=== PATIENT | female | born 1990 | race Caucasian/White ===

== ENCOUNTER 2016-09-14 21:38 | Inpatient (IN) | payer BC ==
[~2016-09-14] VITALS: Ht 160 cm; Wt 48.0 kg
[~2016-09-14 21:38] MED LIST: IBUP-1542 PO; ONDA4TAB35 PO
[2016-09-14] MEDS ORDERED: SOD CHLORIDE 0.9% 1,000 ML IV STA (22:26)
--- NOTE | 2016-09-14 22:36 | ERD ---
ER Documentation Chief Complaint Date/Time DATE: 09/14/16 TIME: 22:34 Chief Complaint 5pm syncopal episode, tachycardic, lost 15lbs in last 2 mos HPI Patient is a 26-year-old female with no medical problems who presents after she passed out. She had a syncopal event at 5 PM. The patient thinks that she might be having thyroid issues as she has had a 15 pound weight loss in the past 2 months which was not done intentionally. She said that she had hot flashes and sweats occasionally as well. She said that today when she passed out she had been standing for about 5 minutes. Her primary doctor is Dr. Jimenez she has an appointment scheduled with him on Friday. Upon review of old medical records this is the patient's third visit to the ER since 2014. ROS All systems reviewed and are negative except as per history of present illness. Medications Home Meds Discontinued Scripts Ibuprofen* (Ibuprofen*) 600 Mg Tablet, 600 MG PO Q6, #30 TAB Prov:GIANNA MCKINNEY PA-C 07/23/15 Ondansetron Hcl* (Zofran* ODT) 4 mg -ODT Tab.disper, 4 MG PO Q4H Y for NAUSEA AND OR VOMITING, #10 TAB Prov:GIANNA MCKINNEY PA-C 07/23/15 Allergies Allergies: Coded Allergies: No Known Allergy (Unverified , 09/14/16) PMhx/Soc Hx Alcohol Use: No Hx Substance Use: No Hx Tobacco Use: No FmHx Family History: No diabetes Physical Exam Vitals Vital Signs Date Time Temp Pulse Resp B/P Pulse Ox O2 Delivery O2 Flow Rate FiO2 09/14/16 22:07 97.9 119 18 161/102 98 Physical Exam Const: No acute distress, patient is thin Head: Atraumatic Eyes: Normal Conjunctiva ENT: Normal External Ears, Nose and Mouth. Neck: Full range of motion..~ No meningismus. Resp: Clear to auscultation bilaterally Cardio: Tachycardic rate without murmur Abd: Soft, non tender, non distended. Normal bowel sounds Skin: No petechiae or rashes Back: No midline or flank tenderness Ext: No cyanosis, or edema Neur: Awake and alert Psych: Normal Mood and Affect Results 24 hrs Current Medications Medications (Trade) Dose Ordered Sig/Osiris Route PRN Reason Start Time Stop Time Status Last Admin Dose Admin Sodium Chloride (NS) 1,000 ml @ 1,000 mls/hr Q1H STAT IV 09/14/16 22:26 09/14/16 23:25 Procedures/MDM EKG pending at this time. Laboratory studies pending at this time. Patient is a 26-year-old female with no medical problems who presents after a syncopal event. She came in with tachycardia and hypertension. The patient will have a workup including urine test, Accu-Chek, EKG, and laboratory studies. She will be given 1 L of normal saline for fluid resuscitation. If her EKG and laboratory studies are normal and I believe outpatient management would be appropriate she does have close follow-up with her primary doctor on Friday. There is no history of Brugada or Clay- Parkinson-White. She should stay well-hydrated and eat frequent meals. She could return for any worsening symptoms. I doubt ventricular fibrillation or ventricular tachycardia. Departure Diagnosis: Primary Impression: Syncope Syncope type: unspecified Qualified Code: R55 - Syncope, unspecified syncope type Condition: Fair Patient Instructions: Syncope, Unk Cause Referrals: XIOMARA JIMENEZ MD Additional Instructions: Keep the appointment with Dr. Jimenez already scheduled for Friday. Return if worse. JODIE MCCULLOUGH MD Sep 14, 2016 22:35
[2016-09-14] MEDS ORDERED: ONDANSETRON 4 MG INJ IV PRN (23:00)
[2016-09-14] MEDS ORDERED: ACETAMINOPHEN 325 MG TAB PO PRN (23:00)
[2016-09-14 23:18] LABS: BASOPHILS % 0.5 % (0.0-2.0); EOSINOPHILS # 0.1 10^3/ul (0.0-0.5); EOSINOPHILS % 1.4 % (0.0-7.0); HEMATOCRIT 42.4 % (37.0-47.0); HEMOGLOBIN 14.3 g/dl (12.0-16.0); LYMPHOCYTES # 2.9 10^3/ul (0.8-2.9); LYMPHOCYTES % 32.6 % (15.0-51.0); MEAN CORPUSCULAR HEMOGLOBIN 28.4 pg (29.0-33.0); MEAN CORPUSCULAR HGB CONC 33.7 g/dl (32.0-37.0); MEAN CORPUSCULAR VOLUME 84.3 fl (82.0-101.0); MEAN PLATELET VOLUME 9.5 fl (7.4-10.4); MONOCYTE # 0.5 10^3/ul (0.3-0.9); MONOCYTES % 5.1 % (0.0-11.0); NEUTROPHIL # 5.4 10^3/ul (1.6-7.5); NEUTROPHILS % 60.4 % (39.0-77.0); PLATELET COUNT 252 10^3/UL (140-440); RED BLOOD COUNT 5.03 10^6/ul (4.20-5.40); RED CELL DISTRIBUTION WIDTH 12.8 % (11.5-14.5); UNCORRECTED WBC 8.9 10^3/ul (4.8-10.8); WHITE BLOOD COUNT 8.9 10^3/ul (4.8-10.8)
[2016-09-14 23:24] LABS: CONDITION 1
[2016-09-14 23:26] LABS: CHLORIDE 102 mmol/L (97-110)
[2016-09-14 23:27] LABS: POTASSIUM 3.2 mmol/L (3.5-5.1); SODIUM 143 mmol/L (135-144)
[2016-09-14 23:29] LABS: CREATININE 0.53 mg/dl (0.44-1.00)
[2016-09-14 23:30] LABS: ANION GAP 19 (8-16); BLOOD UREA NITROGEN 10 mg/dl (7-20); CALCIUM 9.3 mg/dl (8.4-10.2); CARBON DIOXIDE 25 mmol/L (21-31); GLUCOSE 164 mg/dl (70-220)
[2016-09-15] VITALS (13 sets, daily range): BP systolic 93–133; BP diastolic 55–74; PULSE 49–107; RESP 15–20; Ht 160 cm; Wt 48.0 kg
[2016-09-15] MEDS ORDERED: ACETAMINOPHEN 325 MG TAB PO PRN
[2016-09-15] MEDS ORDERED: DOCUSATE SODIUM 100 MG CAP PO PRN
[2016-09-15] MEDS ORDERED: ONDANSETRON 4 MG INJ IV PRN
[2016-09-15] MEDS ORDERED: morphine 2 MG INJ IV PRN
[2016-09-15] MEDS ORDERED: ZOLPIDEM 5 MG TAB PO PRN
[2016-09-15] MEDS ORDERED: HYDROCODONE/APAP (5/325) TAB PO PRN
[2016-09-15] MEDS ORDERED: NACL 0.9% 3 ML SYG IV SCH
[2016-09-15] MEDS ORDERED: POTASSIUM CHLORIDE (SR) 20 MEQ TAB PO STA (01:17)
[2016-09-15 03:47] LABS: THYROID STIMULATING HORMONE < 0.015 MIU/L (0.465-4.680)
[2016-09-15] MEDS: ARTIFICIAL TEARS 15 ML OPH BOTH EYES SCH ×4 (04:05→21:05)
--- NOTE | 2016-09-15 07:18 | HP ---
DATE OF ADMISSION: 09/14/2016 CHIEF COMPLAINT: Syncope. HISTORY OF PRESENT ILLNESS: The patient is a 26-year-old female with no medical history. The patie nt states for the past 2 months she has been losing weight in spite of eating normal, and she also s tated that she has been having hot flashes and palpitations, and she was suspecting a thyroid issue. 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 The patient repor tedly syncopized today after feeling severely hot, and she states that she started to sweat and then subsequently syncopized. She has no previous history of syncope. She has no other medical history . She does state that she has increased bowel movements for the past month. Otherwise, has no comp laints. Her weight loss has been occurring over the past 2 months. PAST MEDICAL HISTORY: Denies. PAST SURGICAL HISTORY: Denies. HOME MEDICATIONS: None. ALLERGIES: NO KNOWN DRUG ALLERGIES. FAMILY HISTORY: Denies. SOCIAL HISTORY: Denies any alcohol, tobacco, or drug abuse. REVIEW OF SYSTEMS: A 12-point review of systems negative, except that in the HPI. PHYSICAL EXAMINATION VITAL SIGNS: Temperature is 97.9, pulse 119, respiratory rate 18, BP is 161/102, saturation 98% on room air. GENERAL: No acute distress. Alert and oriented. HEAD, EARS, EYES, NOSE, AND THROAT: Normocephalic, atraumatic. CHEST: Clear to auscultation. CARDIOVASCULAR: Tachycardic. ABDOMEN: Nondistended, nontender, and soft. EXTREMITIES: There was no clubbing, cyanosis, or edema. LABORATORY DATA: White count is 8.9, hemoglobin is 14.3, platelets are 252. Chemistry: Free T4 is 2.68. ASSESSMENT AND PLAN 1. Syncope, likely secondary to a hot flash, possibly from hyperthyroidism versus . Free T4 i s notably elevated at this time. Would check a TSH as well. Her symptoms could be secondary to hyp erthyroidism. She has lost weight. She has been feeling hot as of late. The patient has no cardia c history. We will obtain a 2D echocardiogram to rule out any cardiac etiology for her syncopal epi sode. More than likely, this is secondary to a hot flash from likely hyperthyroidism. 2. Prophylaxis: Ambulation. Dictated By: RIP HUFF/NTS Conf#: [id number] DID#: [id number]
[2016-09-15 08:32] LABS: BASOPHILS % 0.5 % (0.0-2.0); EOSINOPHILS # 0.1 10^3/ul (0.0-0.5); EOSINOPHILS % 1.4 % (0.0-7.0); HEMATOCRIT 36.1 % (37.0-47.0); HEMOGLOBIN 12.1 g/dl (12.0-16.0); LYMPHOCYTES % 42.7 % (15.0-51.0); MEAN CORPUSCULAR HEMOGLOBIN 28.3 pg (29.0-33.0); MEAN CORPUSCULAR HGB CONC 33.6 g/dl (32.0-37.0); MEAN CORPUSCULAR VOLUME 84.4 fl (82.0-101.0); MEAN PLATELET VOLUME 9.6 fl (7.4-10.4); MONOCYTE # 0.7 10^3/ul (0.3-0.9); MONOCYTES % 7.1 % (0.0-11.0); NEUTROPHIL # 4.6 10^3/ul (1.6-7.5); NEUTROPHILS % 48.3 % (39.0-77.0); PLATELET COUNT 205 10^3/UL (140-440); RED BLOOD COUNT 4.28 10^6/ul (4.20-5.40); RED CELL DISTRIBUTION WIDTH 12.5 % (11.5-14.5); UNCORRECTED WBC 9.5 10^3/ul (4.8-10.8); WHITE BLOOD COUNT 9.5 10^3/ul (4.8-10.8)
[2016-09-15 08:38] LABS: CONDITION 1
[2016-09-15 08:46] LABS: CREATININE 0.54 mg/dl (0.44-1.00)
[2016-09-15 08:47] LABS: CALCIUM 8.9 mg/dl (8.4-10.2); CHOL/HDL RATIO 2.2 RATIO; MAGNESIUM 1.9 mg/dl (1.7-2.5); PHOSPHORUS 4.2 mg/dl (2.5-4.9)
--- NOTE | 2016-09-15 10:10 | RADRPT ---
Echocardiogram Report Patient Name: STEVE HERNANDEZ Gender: Female Date: 1990 Study Date: 15-Sep-2016 Synthetic Staple Extruder: [facility] Location: [id number] Ref. Physician: RIP JAMES Quality: Technically Difficult Study Procedures: Transthoracic echocardiogram with complete 2D, M-Mode, and doppler examination. Indications: Syncope. 2D/M Mode Doppler Measurement Value Normal Ranges Measurement Value Normal Ranges LVIDd 2D 3.7 3.5 - 5.6 cm AV Peak Víctor 1.3 m/sec LVIDs 2D 2.5 2.1 - 4.1 cm AV Peak PG 7.0 mmHg FS 2D 31.7 % LVOT Peak Víctor 1.0 m/sec LVPWd 2D 0.9 0.6 - 1.1 cm LVOT Peak PG 4.0 mmHg IVSd 2D 0.8 0.6 - 1.1 cm MV E Peak Víctor 1.2 m/sec IVS/LVPW 2D 1.0 MV A Peak Víctor 0.7 m/sec AoR Diam 2D 2.2 2.0 - 3.7 cm MV E/A 1.7 LA/Ao 2D 1 0 - 1 MV Decel Time 211 msec EDV 2D 51.5 cm3 MV E/A 1.7 ESV 2D 16.4 cm3 MR Peak PG 72.0 mmHg LA Dimen 2D 2.9 2.3 - 4.0 cm MR Peak Víctor 4.2 m/sec Findings Left Ventricle: Normal left ventricular cavity size. Normal left ventricular wall thickness. Ejection fraction is visually estimated at 60 %. Abnormal Diastolic Function. Right Ventricle: Normal right ventricular size. Normal right ventricular systolic function. Left Atrium: The left atrium is normal in size. Right Atrium: The right atrium is normal in size. Mitral Valve: Mild mitral leaflet calcification. Mild mitral annular calcification. Mild mitral valve regurgitation. Aortic Valve: Trileaflet aortic valve. Trace aortic valve regurgitation. Tricuspid Valve: Normal appearance and function of the tricuspid valve with trace physiologic regurgitation. Pulmonic Valve: There is trace pulmonic regurgitation. Pericardium: Normal pericardium with no significant pericardial effusion. Aorta: Normal aortic root. IVC: Normal size and normal respiratory collapse consistent with normal right atrial pressure. Conclusions 1.Normal left ventricular cavity size. Normal left ventricular wall thickness. Ejection fraction is visually estimated at 60 %. Abnormal Diastolic Function. 2.Trileaflet aortic valve. Trace aortic valve regurgitation. Electronically Signed By: Fabian Varela 15-Sep-2016 10:09:54 -0800 Patient Name: STEVE HERNANDEZ Study Date: 15-Sep-[id number]
--- NOTE | 2016-09-15 11:16 | CONS ---
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 Start methimazole 20 mg/d and propranolol 10 mg qid. Pt. has been instructed to stop methimazole and get a stat CBC prn fever/sore throat. Will give more NS to increase blood volume in large capacitance. Pt. ok for d/c from my standpoint. F/u w/ me in my office. Consultation Date/Type/Reason Admit Date/Time Sep 14, 2016 at 22:49 Date of Consultation: Sep 15, 2016 Type of Consultation: Endocrinology Reason for Consultation Thyrotoxicosis Referring Provider: EBEN DODD MD Hx of Present Illness 26 y/o C F w/o sig. PMH in H until last 2 months when she developed palpitations, tremors, sweating, flushing, insomnia. These have been progressively worsening. (+) heat intolerance at any temperature change. Yesterday walked into a spa locker room and felt herself begin to syncopize. Sat down but told her friend she was going to pass out. Subsequently did. Came here to [facility]. Found to have TSH undetectable and FT4 elevated. Endo consulted. Constitutional: diaphoresis, no complaints Eyes: no complaints ENT: no complaints Respiratory: no complaints Cardiovascular: lightheadedness, palpitations Gastrointestinal: no complaints Genitourinary: no complaints Musculoskeletal: no complaints Neurologic: other (tremor) Endocrine: temp intolerance Psychological: other (emotional and irritable) Past Medical History Medical History: no pertinent history Past Surgical History Past Surgical Hx: no surgical history Family History Significant Family History: heart disease (grandfather), other (hypothyroidism in mother) Social History b. 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 ago) Drug Use: marijuana (rarely) Exam/Review of Systems Vital Signs Vitals VS - Last 72 Hours, by Label Date Time Temp Pulse Resp B/P Pulse Ox O2 Delivery O2 Flow Rate FiO2 09/15/16 08:37 63 09/15/16 08:03 97.9 75 17 133/69 100 09/15/16 04:12 74 09/15/16 04:00 97.7 69 15 117/66 100 09/15/16 04:00 97.6 69 18 117/66 100 Room Air 09/15/16 00:57 107 09/15/16 00:30 98.4 98 15 125/74 99 09/15/16 00:30 112 21 130/82 100 Room Air 09/14/16 22:07 97.9 119 18 161/102 98 Vital Signs Date Time Temp Pulse Resp B/P Pulse Ox O2 Delivery O2 Flow Rate FiO2 09/15/16 08:37 63 09/15/16 08:03 97.9 17 133/69 100 09/15/16 04:00 Room Air Intake and Output 09/14/16 09/14/16 09/15/16 15:00 23:00 07:00 Intake Total 1240 ml Output Total 1 ml Balance 1239 ml Exam Constitutional: alert, oriented, well developed Psych: anxiety Eyes: EOMI, PERRL, nl conjunctiva, nl lids, nl sclera ENMT: mucosa pink and moist, nl external ears & nose Neck: non-tender, supple, thyromegaly (diffusely enlarged w/o nodules, firm), No bruits, No masses Respiratory: clear to auscultation, normal air movement Cardiovascular: nl pulses, regular rate and rhythm, No edema, No murmurs/extra sounds, No rub Gastrointestinal: bowel sounds, nl liver, spleen, non-tender, soft, No mass, No rebound or guarding Musculoskeletal: nl extremities to inspection Extremities: normal pulses, No clubbing, No cyanosis, No edema Neurological: CONDEMNATION ENGINEER II-XII intact, nl mental status, nl speech, nl strength, other (fine tremor) Skin: diaphoresis, nl turgor, other (warm to touch), rash or lesions Results Result Diagram: 09/15/16 0639 09/15/16 0639 Results 24 hrs Laboratory Tests Test 09/14/16 22:30 09/14/16 23:06 09/15/16 06:39 Anion Gap 19 H 14 Basophils # 0.0 0.0 Basophils % 0.5 0.5 Blood Morphology Comment Blood Urea Nitrogen 10 8 Calcium Level 9.3 8.9 Carbon Dioxide Level 25 26 Chloride Level 102 108 Creatinine 0.53 0.54 Eosinophils # 0.1 0.1 Eosinophils % 1.4 1.4 Free Thyroxine 2.68 H Glucose Level 164 84 # Hematocrit 42.4 36.1 L Hemoglobin 14.3 12.1 Lymphocytes # 2.9 4.0 H Lymphocytes % 32.6 42.7 Mean Corpuscular Hemoglobin 28.4 L 28.3 L Mean Corpuscular Hemoglobin Concent 33.7 33.6 Mean Corpuscular Volume 84.3 84.4 Mean Platelet Volume 9.5 9.6 Monocytes # 0.5 0.7 Monocytes % 5.1 7.1 Neutrophils # 5.4 4.6 Neutrophils % 60.4 48.3 Nucleated Red Blood Cells # 0.0 0.0 Nucleated Red Blood Cells % 0.0 0.0 Platelet Count 252 205 Potassium Level 3.2 L 4.0 Red Blood Count 5.03 4.28 Red Cell Distribution Width 12.8 12.5 Sodium Level 143 144 Thyroid Stimulating Hormone (TSH) < 0.015 L White Blood Count 8.9 9.5 Bedside Glucose 121 Cholesterol Level 93 L Cholesterol/HDL Ratio 2.2 HDL Cholesterol 42 Hemoglobin A1c 5.2 LDL Cholesterol, Calculated 44 Magnesium Level 1.9 Phosphorus Level 4.2 Triglycerides Level 34 Medications Medications Current Medications Ondansetron HCl (Zofran Inj) 4 mg Q6H PRN IV NAUSEA AND/OR VOMITING; Start 07/20 at 00:00 Acetaminophen (Tylenol Tab) 650 mg Q6H PRN PO PAIN LEVEL 1-3 OR FEVER; Start at 00:00 Acetaminophen/ Hydrocodone Bitart ([place] (5/325)) 1 tab Q6H PRN PO MODERATE PAIN LEVEL 4-6; Start 09/15/16 at 00:00 Morphine Sulfate (morphine) 2 mg Q4H PRN IV SEVERE PAIN LEVEL 7-10; Start 09/15 at 00:00 Docusate Sodium (Colace) 100 mg Q12H PRN PO CONSTIPATION; Start 09/15/16 at 00: 00 Zolpidem Tartrate (Ambien) 5 mg QHS PRN PO SLEEP; Start 09/15/16 at 00:00 Eye Lubricant (Artificial Tears Oph) 2 drop Q8 BOTH EYES Last administered on 2 /12/17at 04:05; Admin Dose 2 DROP; Start 09/15/16 at 01:30 ROSIO GONZALEZ MD Sep 15, 2016 11:15
[2016-09-15] MEDS: SOD CHLORIDE 0.9% 1,000 ML IV SCH ×2 (12:01→19:35)
--- NOTE | 2016-09-15 12:11 | PN ---
Date/Time of Note Date/Time of Note DATE: 09/15/16 TIME: 12:04 Assessment/Plan VTE Prophylaxis VTE Prophylaxis Intervention: SCD's Lines/Catheters IV Catheter Type (from Nrsg): Saline Lock Assessment/Plan Assessment/Plan 1. Syncope, likely secondary to a hot flash, possibly from hyperthyroidism - ECHO has been ordered . Plan: s/p Endocrionolgoy - started on methimazole IVF NS monitor HR on telemetry floor pt has prolonged QT internval on EKG, will repeat EKG in AM after Getting IVF and methimazole SCD for DVT prophylaxis Subjective 24 Hr Interval Summary Free Text/Dictation no acute events overnight,BP stable, seen by Endocrinology Exam/Review of Systems Vital Signs Vitals Vital Signs Date Time Temp Pulse Resp B/P Pulse Ox O2 Delivery O2 Flow Rate FiO2 09/15/16 11:52 98.7 89 17 123/70 99 09/15/16 04:00 Room Air Intake and Output 09/14/16 09/14/16 09/15/16 15:00 23:00 07:00 Intake Total 1240 ml Output Total 1 ml Balance 1239 ml Exam GENERAL: No acute distress. Alert and oriented. HEAD, EARS, EYES, NOSE, AND THROAT: Normocephalic, atraumatic. CHEST: Clear to auscultation. CARDIOVASCULAR: Tachycardic. ABDOMEN: Nondistended, nontender, and soft. EXTREMITIES: There was no clubbing, cyanosis, or edema. Results Result Diagram: 09/15/16 0639 09/15/16 0639 Results 24 hrs Laboratory Tests Test 09/14/16 22:30 09/14/16 23:06 09/15/16 06:39 Anion Gap 19 H 14 Basophils # 0.0 0.0 Basophils % 0.5 0.5 Blood Morphology Comment Blood Urea Nitrogen 10 8 Calcium Level 9.3 8.9 Carbon Dioxide Level 25 26 Chloride Level 102 108 Creatinine 0.53 0.54 Eosinophils # 0.1 0.1 Eosinophils % 1.4 1.4 Free Thyroxine 2.68 H Glucose Level 164 84 # Hematocrit 42.4 36.1 L Hemoglobin 14.3 12.1 Lymphocytes # 2.9 4.0 H Lymphocytes % 32.6 42.7 Mean Corpuscular Hemoglobin 28.4 L 28.3 L Mean Corpuscular Hemoglobin Concent 33.7 33.6 Mean Corpuscular Volume 84.3 84.4 Mean Platelet Volume 9.5 9.6 Monocytes # 0.5 0.7 Monocytes % 5.1 7.1 Neutrophils # 5.4 4.6 Neutrophils % 60.4 48.3 Nucleated Red Blood Cells # 0.0 0.0 Nucleated Red Blood Cells % 0.0 0.0 Platelet Count 252 205 Potassium Level 3.2 L 4.0 Red Blood Count 5.03 4.28 Red Cell Distribution Width 12.8 12.5 Sodium Level 143 144 Thyroid Stimulating Hormone (TSH) < 0.015 L White Blood Count 8.9 9.5 Bedside Glucose 121 Cholesterol Level 93 L Cholesterol/HDL Ratio 2.2 HDL Cholesterol 42 Hemoglobin A1c 5.2 LDL Cholesterol, Calculated 44 Magnesium Level 1.9 Phosphorus Level 4.2 Triglycerides Level 34 Medications Medications Current Medications Ondansetron HCl (Zofran Inj) 4 mg Q6H PRN IV NAUSEA AND/OR VOMITING; Start 07/20 at 00:00 Acetaminophen (Tylenol Tab) 650 mg Q6H PRN PO PAIN LEVEL 1-3 OR FEVER; Start at 00:00 Acetaminophen/ Hydrocodone Bitart ([place] (5/325)) 1 tab Q6H PRN PO MODERATE PAIN LEVEL 4-6; Start 09/15/16 at 00:00 Morphine Sulfate (morphine) 2 mg Q4H PRN IV SEVERE PAIN LEVEL 7-10; Start 09/15 at 00:00 Docusate Sodium (Colace) 100 mg Q12H PRN PO CONSTIPATION; Start 09/15/16 at 00: 00 Zolpidem Tartrate (Ambien) 5 mg QHS PRN PO SLEEP; Start 09/15/16 at 00:00 Eye Lubricant (Artificial Tears Oph) 2 drop Q8 BOTH EYES Last administered on 04:05; Admin Dose 2 DROP; Start 09/15/16 at 01:30 Methimazole (Tapazole) 20 mg DAILY PO ; Start 09/15/16 at 12:30 Propranolol HCl 10 mg 10 mg QID PO ; Start 09/15/16 at 12:30 Sodium Chloride (NS) 1,000 ml @ 150 mls/hr Q6H40M IV Last administered on 09/15 12:01; Admin Dose 150 MLS/HR; Start 09/15/16 at 11:30 DOTTY LOUIS MD Sep 15, 2016 12:11
[2016-09-15] MEDS ORDERED: PROPRANOLOL 10 MG TAB PO SCH (12:30)
[2016-09-15] MEDS: METHIMAZOLE 5 MG TAB PO SCH (14:30)
[2016-09-15] MEDS: PROPRANOLOL 10 MG TAB PO SCH (20:31)
[2016-09-16] VITALS (7 sets, daily range): BP systolic 102–119; BP diastolic 57–65; PULSE 65–70; RESP 18–20
[2016-09-16] MEDS: ARTIFICIAL TEARS 15 ML OPH BOTH EYES SCH (06:00)
[2016-09-16 07:55] LABS: BASOPHILS % 0.5 % (0.0-2.0); EOSINOPHILS # 0.2 10^3/ul (0.0-0.5); EOSINOPHILS % 2.2 % (0.0-7.0); HEMATOCRIT 38.2 % (37.0-47.0); HEMOGLOBIN 12.8 g/dl (12.0-16.0); LYMPHOCYTES # 3.2 10^3/ul (0.8-2.9); LYMPHOCYTES % 39.6 % (15.0-51.0); MEAN CORPUSCULAR HEMOGLOBIN 28.3 pg (29.0-33.0); MEAN CORPUSCULAR HGB CONC 33.6 g/dl (32.0-37.0); MEAN CORPUSCULAR VOLUME 84.3 fl (82.0-101.0); MEAN PLATELET VOLUME 9.5 fl (7.4-10.4); MONOCYTE # 0.6 10^3/ul (0.3-0.9); MONOCYTES % 7.4 % (0.0-11.0); NEUTROPHILS % 50.3 % (39.0-77.0); PLATELET COUNT 205 10^3/UL (140-440); RED BLOOD COUNT 4.54 10^6/ul (4.20-5.40); RED CELL DISTRIBUTION WIDTH 12.7 % (11.5-14.5)
[2016-09-16 08:04] LABS: CONDITION 1
[2016-09-16 08:12] LABS: INR 1.21; PROTIME 15.4 Sec (12.2-14.2); PT RATIO 1.2
[2016-09-16 08:13] LABS: PARTIAL THROMBOPLASTIN TIME 31.9 Sec (25.0-35.0)
[2016-09-16 08:14] LABS: POTASSIUM 4.2 mmol/L (3.5-5.1)
[2016-09-16 08:16] LABS: CREATININE 0.55 mg/dl (0.44-1.00)
[2016-09-16 08:17] LABS: CALCIUM 9.4 mg/dl (8.4-10.2)
[2016-09-16] MEDS: METHIMAZOLE 5 MG TAB PO SCH (09:13)
[2016-09-16] MEDS: PROPRANOLOL 10 MG TAB PO SCH (09:14)
--- NOTE | 2016-09-16 10:21 | PDOCDIS ---
Discharge Instructions CONDITION Patient Condition: Good HOME CARE INSTRUCTIONS: Diet Instructions: Regular ACTIVITY: Activity Restrictions: No Restrictions FOLLOW UP/APPOINTMENTS Appointments F/U WITH YOUR PCP AND DR GONZALEZ IN 1-2 WEEKS RIP JAMES Sep 16, 2016 10:21
[2016-09-16] MEDS ORDERED: TAP5 PO (10:23)
[2016-09-16] MEDS ORDERED: PROP10TA6 PO (10:23)
--- NOTE | 2016-09-17 08:05 | DS ---
DATE OF ADMISSION: 09/14/2016 DATE OF DISCHARGE: 09/16/2016 DISCHARGE DIAGNOSES: 1. Thyrotoxicosis with diffuse goiter, discharge with methimazole and Propranolol. The patient to follow with endocrinology as an outpatient. 2. Syncope secondary to hot flash from thyrotoxicosis 3. Tachycardia secondary to thyrotoxicosis. HOSPITAL COURSE: The patient is a 26-year-old female with no past medical history. The patient had been experiencing hot flashes and weight loss over the past several months. She came in with a naomi gnosis of syncope. This was secondary to a hot flash. She also had palpitations. There is a suspi cion of hypothyroidism. This was confirmed on laboratory exam. The patient was seen by endocrinolo ozzie, Dr. Bai. The patient was diagnosed with thyrotoxicosis with diffuse goiter. Antibodies wer e sent out. It was felt that based on family history and presentation, that she likely had Grave's disease. She was started on methimazole and propranolol. She was told to follow up with endocrinol enid as an outpatient. The patient was cleared for discharge per endocrinology. The patient was fee ling better. She had no acute complaints and her questions were answered. Vitals, labs, and physic al exam were stable on the day of discharge. CONDITION ON DISCHARGE: Stable. DISPOSITION: To home. MEDICATIONS: The patient was given a prescription for methimazole 20 mg daily and propranolol 10 mg p.o. q.i.d. Of note, patient was instructed by endocrinology to stop taking the methimazole and ge t a CBC stat p.r.n. for any fever or sore throat. The patient has no other reported home medication s. FOLLOWUP: The patient is to follow up with the PCP and Dr. Bai of endocrinology in 1 to 2 weeks . Greater than 30 minutes was spent coordinating discharge of the patient. Dictated By: RIP JAMES MD BS/NTS Conf#: [id number] DID#: [id number]
[2016-09-17 11:34] LABS: THYROID MICROSOMAL ANTIBODY >900 IU/mL (<9)
== END 2016-09-16 14:11 | disposition home or self-care (01) | DRG 645 ==
LOC: E/R 21:38 → MS4 22:49
PROVIDERS: ADMIT Internal Medicine; ATTEND Internal Medicine
DX: E05.00 Thyrotoxicosis with diffuse goiter without thyrotoxic crisis or storm (principal); R55 Syncope and collapse; R00.0 Tachycardia, unspecified
CPT/HCPCS: 36415; 80048; 80061; 82962; 83036; 83735; 84100; 84439; 84443; 85025; 85610; 85730; 86376; 93005; 93306; 96360; J7030

== ENCOUNTER → 2016-10-30 | Outpatient (CLI) | payer BC ==
[~2016-10-30] MED LIST changes: -IBUP-1542 PO; -ONDA4TAB35 PO; +PROP10TA6 PO; +TAP5 PO
[2016-10-30 05:59] LABS: TRIIODOTHYRONINE 1.38 ng/ml (0.97-1.69)
[2016-10-30 06:03] LABS: THYROID STIMULATING HORMONE < 0.015 MIU/L (0.465-4.680)
== END | disposition home or self-care (01) ==
LOC: LAB 03:24
PROVIDERS: ATTEND Internal Medicine
DX: E05.00 Thyrotoxicosis with diffuse goiter without thyrotoxic crisis or storm (principal)
CPT/HCPCS: 84439; 84443; 84480

== ENCOUNTER → 2016-12-11 | Outpatient (CLI) | payer BC ==
[~2016-12-11] MED LIST changes: +EXCED PO; +METH-493 PO; +MULTI PO; -TAP5 PO
[2016-12-11 22:02] LABS: ADD SCAN DIFF NO; BASOPHIL # 0.1 10^3/ul (0.0-0.1); BASOPHILS % 0.5 % (0.0-2.0); EOSINOPHILS # 0.3 10^3/ul (0.0-0.5); EOSINOPHILS % 2.5 % (0.0-7.0); HEMOGLOBIN 13.9 g/dl (12.0-16.0); LYMPHOCYTES # 3.4 10^3/ul (0.8-2.9); LYMPHOCYTES % 29.7 % (15.0-51.0); MEAN CORPUSCULAR HEMOGLOBIN 28.2 pg (29.0-33.0); MEAN CORPUSCULAR HGB CONC 33.1 g/dl (32.0-37.0); MEAN CORPUSCULAR VOLUME 85.2 fl (82.0-101.0); MEAN PLATELET VOLUME 9.8 fl (7.4-10.4); MONOCYTE # 0.6 10^3/ul (0.3-0.9); MONOCYTES % 4.8 % (0.0-11.0); NEUTROPHIL # 7.1 10^3/ul (1.6-7.5); NEUTROPHILS % 62.2 % (39.0-77.0); PLATELET COUNT 253 10^3/UL (140-415); RED BLOOD COUNT 4.93 10^6/ul (4.20-5.40); RED CELL DISTRIBUTION WIDTH 13.6 % (11.5-14.5); WHITE BLOOD COUNT 11.4 10^3/ul (4.8-10.8)
[2016-12-11 22:26] LABS: ALBUMIN 4.8 g/dl (3.3-4.9); ALBUMIN/GLOBULIN RATIO 1.29; BILIRUBIN,INDIRECT 0.5 mg/dl (0-1.1); BILIRUBIN,TOTAL 0.5 mg/dl (0.2-1.3); CALCIUM 9.5 mg/dl (8.4-10.2); CREATININE 0.78 mg/dl (0.44-1.00); POTASSIUM 4.1 mmol/L (3.5-5.1); TOTAL PROTEIN 8.5 g/dl (6.1-8.1)
[2016-12-11 22:56] LABS: THYROID STIMULATING HORMONE 1.95 MIU/L (0.465-4.680)
[2016-12-11 23:05] LABS: TRIIODOTHYRONINE 0.86 ng/ml (0.97-1.69)
== END | disposition home or self-care (01) ==
LOC: LAB 18:49 → EEVIPCON 18:49
PROVIDERS: ATTEND Internal Medicine
DX: E05.00 Thyrotoxicosis with diffuse goiter without thyrotoxic crisis or storm (principal)
CPT/HCPCS: 80053; 84439; 84443; 84480; 85025

== ENCOUNTER 2016-12-19 23:37 | Emergency (ER) | payer BC ==
[~2016-12-19] VITALS: Ht 160 cm; Wt 50.5 kg
[~2016-12-19 23:37] MED LIST changes: -EXCED PO; -MULTI PO
[2016-12-19 23:44] VITALS: Ht 160 cm; Wt 50.5 kg
[2016-12-20] MEDS ORDERED: SOD CHLORIDE 0.9% 1,000 ML IV STA (00:29)
[2016-12-20] MEDS ORDERED: MULTI PO (00:45)
[2016-12-20] MEDS ORDERED: EXCED PO (00:45)
[2016-12-20 01:12] LABS: ADD SCAN DIFF NO
[2016-12-20 01:14] LABS: BASOPHIL # 0.1 10^3/ul (0.0-0.1); BASOPHILS % 0.6 % (0.0-2.0); EOSINOPHILS # 0.3 10^3/ul (0.0-0.5); EOSINOPHILS % 3.1 % (0.0-7.0); HEMOGLOBIN 13.6 g/dl (12.0-16.0); LYMPHOCYTES # 2.5 10^3/ul (0.8-2.9); LYMPHOCYTES % 29.5 % (15.0-51.0); MEAN CORPUSCULAR HGB CONC 33.2 g/dl (32.0-37.0); MEAN CORPUSCULAR VOLUME 84.4 fl (82.0-101.0); MEAN PLATELET VOLUME 10.3 fl (7.4-10.4); MONOCYTE # 0.5 10^3/ul (0.3-0.9); MONOCYTES % 5.5 % (0.0-11.0); NEUTROPHIL # 5.1 10^3/ul (1.6-7.5); NEUTROPHILS % 60.9 % (39.0-77.0); PLATELET COUNT 248 10^3/UL (140-415); RED BLOOD COUNT 4.86 10^6/ul (4.20-5.40); RED CELL DISTRIBUTION WIDTH 13.6 % (11.5-14.5); WHITE BLOOD COUNT 8.3 10^3/ul (4.8-10.8)
[2016-12-20 01:32] LABS: ALBUMIN 4.7 g/dl (3.3-4.9); ALBUMIN/GLOBULIN RATIO 1.46; BILIRUBIN,INDIRECT 0.5 mg/dl (0-1.1); BILIRUBIN,TOTAL 0.5 mg/dl (0.2-1.3); CALCIUM 9.7 mg/dl (8.4-10.2); CREATININE 0.77 mg/dl (0.44-1.00); POTASSIUM 3.7 mmol/L (3.5-5.1); TOTAL PROTEIN 7.9 g/dl (6.1-8.1)
[2016-12-20 01:40] LABS: ADD UMIC YES; URINE BILIRUBIN (Dip) NEGATIVE (NEGATIVE); URINE BLOOD (Dip) 1+ (NEGATIVE); URINE COLOR LT. YELLOW (YELLOW); URINE GLUCOSE (Dip) NEGATIVE (NEGATIVE); URINE KETONES (Dip) NEGATIVE (NEGATIVE); URINE LEUKOCYTE ESTERASE (Dip) NEGATIVE (NEGATIVE); URINE NITRITE (Dip) NEGATIVE (NEGATIVE); URINE TOTAL PROTEIN (Dip) NEGATIVE (NEGATIVE); URINE UROBILINOGEN (Dip) 0.2 E.U./dL (0.1-1.0)
[2016-12-20 01:54] LABS: SQUAMOUS EPITHELIAL CELL,UR RARE; URINE RBCS 0-2 /HPF (0)
[2016-12-20] MEDS ORDERED: IBUPROFEN 600 MG TAB PO ONE (02:30)
[2016-12-20 02:40] VITALS: BP 113/64; PULSE 60; RESP 20; TEMP 97.7
[2016-12-20] MEDS ORDERED: ALPR0.25 PO (03:30)
--- NOTE | 2016-12-20 03:35 | ERD ---
ER Documentation Chief Complaint Date/Time DATE: 12/20/16 TIME: 03:31 Chief Complaint OH with N/V and Diarrhea. Thyroid crisis HPI This 26-year-old female presents emergency room with shakiness and one episode of vomiting and one episode of diarrhea. She was recently diagnosed with Graves ' disease and is worried that she may be having thyrotoxicosis. Her dose of Tapazole was cut in half last week. She took an extra dose today to prevent any thyroid storm. She denies chest pain. States that she currently does not have nausea does not have pain. ROS All systems reviewed and are negative except as per history of present illness. Medications Home Meds Active Scripts Alprazolam* (Xanax*) 0.25 Mg Tablet, 0.25 MG PO Q8H Y for ANXIETY, #10 TAB Prov:KODAK EDWARDS DO 12/20/16 Propranolol Hcl* (Propranolol Hcl*) 10 Mg Tablet, 10 MG PO QID for 60 Days, TAB Prov:RIP JAMES 09/16/16 Methimazole* (Methimazole*) 5 Mg Tablet, 20 MG PO DAILY for 60 Days, TAB Prov:RIP JAMES 09/16/16 Reported Medications Acetaminophen/Aspirin/Caffeine* (Excedrin*) 1 Tab Tab, 1 TAB PO, TAB 12/20/16 Multivitamins* (Theragran*) 1 Tab Tab, 1 TAB PO DAILY, TAB 12/20/16 Allergies Allergies: Coded Allergies: No Known Allergy (Unverified , 12/20/16) PMhx/Soc History of Surgery: No Anesthesia Reaction: No Hx Neurological Disorder: No Hx Respiratory Disorders: No Hx Cardiac Disorders: No Hx Psychiatric Problems: No Hx Miscellaneous Medical Probl: Yes (Grave's dz,hyperthyroidism) Hx Alcohol Use: No Hx Substance Use: No Hx Tobacco Use: Yes (quit 2013) Smoking Status: Former smoker Physical Exam Vitals Vital Signs Date Time Temp Pulse Resp B/P Pulse Ox O2 Delivery O2 Flow Rate FiO2 12/20/16 02:40 97.7 60 20 113/64 100 Room Air 12/19/16 23:44 97.7 66 20 158/99 100 Physical Exam Const: [] No distress Head: Atraumatic Eyes: Normal Conjunctiva ENT: Normal External Ears, Nose and Mouth. Neck: Full range of motion..~ No meningismus. Resp: Clear to auscultation bilaterally Cardio: Regular rate and rhythm, no murmurs Abd: Soft, non tender, non distended. Normal bowel sounds Skin: No petechiae or rashes Back: No midline or flank tenderness Ext: No cyanosis, or edema Neur: Awake and alert and oriented 3, no focal deficits Psych: Normal Mood and Affect Result Diagram: 12/20/16 0040 12/20/16 0040 Results 24 hrs Laboratory Tests Test 12/20/16 00:40 12/20/16 01:20 White Blood Count 8.310^3/ul Red Blood Count 4.8610^6/ul Hemoglobin 13.6g/dl Hematocrit 41.0% Mean Corpuscular Volume 84.4fl Mean Corpuscular Hemoglobin 28.0pg Mean Corpuscular Hemoglobin Concent 33.2g/dl Red Cell Distribution Width 13.6% Platelet Count 76520^3/UL Mean Platelet Volume 10.3fl Neutrophils % 60.9% Lymphocytes % 29.5% Monocytes % 5.5% Eosinophils % 3.1% Basophils % 0.6% Nucleated Red Blood Cells % 0.0/100WBC Neutrophils # 5.110^3/ul Lymphocytes # 2.510^3/ul Monocytes # 0.510^3/ul Eosinophils # 0.310^3/ul Basophils # 0.110^3/ul Nucleated Red Blood Cells # 0.010^3/ul Sodium Level 139mmol/L Potassium Level 3.7mmol/L Chloride Level 105mmol/L Carbon Dioxide Level 25mmol/L Anion Gap 13 Blood Urea Nitrogen 11mg/dl Creatinine 0.77mg/dl Glucose Level 140mg/dl Calcium Level 9.7mg/dl Total Bilirubin 0.5mg/dl Direct Bilirubin 0.00mg/dl Indirect Bilirubin 0.5mg/dl Aspartate Amino Transf (AST/SGOT) 20IU/L Alanine Aminotransferase (ALT/SGPT) 26IU/L Alkaline Phosphatase 42IU/L Total Protein 7.9g/dl Albumin 4.7g/dl Globulin 3.20g/dl Albumin/Globulin Ratio 1.46 Lipase 88U/L Free Thyroxine Index 1.86ug/ml Thyroxine (T4) 6.4ug/dl Triiodothyronine (T3) Uptake 29.0% Urine Color LT. YELLOW Urine Clarity CLEAR Urine pH 6.0 Urine Specific [place] <=1.005 Urine Ketones NEGATIVE Urine Nitrite NEGATIVE Urine Bilirubin NEGATIVE Urine Urobilinogen 0.2 E.U./dL Urine Leukocyte Esterase NEGATIVE Urine Microscopic RBC 0-2/HPF Urine Microscopic WBC 0-2/HPF Urine Squamous Epithelial Cells RARE Urine Hemoglobin 1+ Urine Glucose NEGATIVE% Urine Total Protein NEGATIVE Current Medications Medications (Trade) Dose Ordered Sig/[place] Route PRN Reason Start Time Stop Time Status Last Admin Dose Admin Sodium Chloride (NS) 1,000 ml @ 1,000 mls/hr Q1H STAT IV 12/20/16 00:29 12/20/16 01:28 DC 12/20/16 00:49 Ibuprofen (Motrin) 600 mg ONCE ONCE PO 12/20/16 02:30 12/20/16 02:31 DC 12/20/16 02:30 Procedures/MDM 26-year-old female with history and symptoms concerning for possible thyrotoxicosis. The size did not support that and fortunately laboratories show no thyroid abnormalities currently. Patient did self medicate herself with an extra dose and that may have helped her. Currently she is stable. She worries that she may have had an anxiety reaction she has not slept much lately. Vital signs are stable and she feels well in the emergency room now. I am going to discharge with a few 0.25 mg Xanax pills and instructions to follow-up with her primary care doctor for repeat thyroid labs currently there are no signs of infection at all. EKG interpretation: Sinus bradycardia rate of 56, normal axis, no ST or T-wave changes concerning for acute ischemia, normal intervals. Departure Diagnosis: Primary Impression: Anxiety Condition: Stable Patient Instructions: Anxiety Reaction Additional Instructions: Call your primary care doctor TOMORROW for an appointment during the next 2-3 days.See the doctor sooner or return here if your condition worsens before your appointment time. KODAK EDWARDS DO December 20, 2016 03:35
== END 2016-12-20 02:44 | disposition home or self-care (01) ==
LOC: E/R 23:37
DX: F41.9 Anxiety disorder, unspecified (principal); R40.2142 Coma scale, eyes open, spontaneous, at arrival to emergency department; R40.2252 Coma scale, best verbal response, oriented, at arrival to emergency department; R40.2362 Coma scale, best motor response, obeys commands, at arrival to emergency department; R00.1 Bradycardia, unspecified; Z87.891 Personal history of nicotine dependence
CPT/HCPCS: 36415; 80053; 81001; 81003; 83690; 84436; 84479; 85025; 93005; 99284; J7030

== ENCOUNTER → 2017-01-21 | Outpatient (CLI) | payer BC ==
[~2017-01-21] MED LIST changes: +ALPR0.25 PO; +EXCED PO; +MULTI PO
== END | disposition home or self-care (01) ==
LOC: OBT 23:09
PROVIDERS: ATTEND Internal Medicine
DX: E05.00 Thyrotoxicosis with diffuse goiter without thyrotoxic crisis or storm (principal)
CPT/HCPCS: 84439; 84443; 84481